=== PATIENT | female | born 2005 | race African-American/Black ===

== ENCOUNTER 2023-08-24 15:54 | Emergency (ER) | payer OTHER ==
[2023-08-24 16:06] VITALS: O2SAT 100
[2023-08-24 16:18] LABS: BASOPHILS % (AUTO) 0.5 %; EOSINOPHILS # (AUTO) 0.1 10^3/uL (0.0-0.7); EOSINOPHILS % (AUTO) 0.7 %; HCT - HEMATOCRIT 39.8 % (37.0-47.0); HGB - HEMOGLOBIN 12.7 g/dL (12.0-16.0); LYMPHOCYTES # (AUTO) 2.1 10^3/uL (1.5-3.5); MEAN CORPUSCULAR HGB CONC 31.9 g/dL (32.0-36.0); MEAN CORPUSCULAR VOLUME 87.7 fL (81.0-99.0); MEAN PLATELET VOLUME 10.7 fL (7.9-10.8); MONOCYTES # (AUTO) 0.8 10^3/uL (0.0-1.0); MONOCYTES % (AUTO) 9.3 %; NEUTROPHILS # (AUTO) 5.6 10^3/uL (1.5-6.6); NEUTROPHILS % (AUTO) 65.3 %; PLT - PLATELET COUNT 224 10^3/uL (130-450); RED BLOOD COUNT 4.54 10^6/uL (4.20-5.40); RED CELL DISTRIBUTION WIDTH 12.1 % (12.0-15.0); WHITE BLOOD COUNT 8.6 x10^3/uL (4.8-10.8)
[2023-08-24 16:47] LABS: ALBUMIN 4.4 g/dL (3.2-5.5); ALBUMIN/GLOBULIN RATIO 1.6 (1.0-2.2); ALKALINE PHOSPHATASE 49 IU/L (42-121); ALT ALANINE AMINOTRANSFERASE 19 IU/L (10-60); AST ASPARTATE AMINOTRANSFERASE 16 IU/L (10-42); BILIRUBIN,TOTAL 0.4 mg/dL (0.2-1.0); BUN - BLOOD UREA NITROGEN 8 mg/dL (6-20); CALCIUM 9.7 mg/dL (8.5-10.3); CARBON DIOXIDE - CO2 29 mmol/L (21-32); CHLORIDE 104 mmol/L (101-111); CREATININE 0.5 mg/dL (0.6-1.3); GFR - MDRD 191 (>89); GLUCOSE 77 mg/dL (74-104); POTASSIUM 3.7 mmol/L (3.5-4.5); SODIUM 139 mmol/L (135-145); TOTAL PROTEIN 7.1 g/dL (6.4-8.9)
[2023-08-24 16:48] LABS: LIPASE < 10 U/L (11-82)
[2023-08-24 16:49] LABS: BILIRUBIN,URINE NEGATIVE (NEGATIVE); GLUCOSE, URINE (UA) NEGATIVE (NEGATIVE); KETONES,URINE (UA) NEGATIVE (NEGATIVE); LEUKOCYTE ESTERASE, URINE NEGATIVE (NEGATIVE); NITRITE,URINE NEGATIVE (NEGATIVE); OCCULT BLOOD,URINE NEGATIVE (NEGATIVE); PROTEIN,URINE NEGATIVE (NEGATIVE); UROBILINOGEN,URINE 1 (NORMAL) E.U./dL (NORMAL)
[2023-08-24 16:51] LABS: CLARITY,URINE CLEAR (CLEAR); HCG UR QUAL NEGATIVE
--- NOTE | 2023-08-24 18:22 | ED Physician Documentation ---
History of Present Illness - Stated complaint Stated Complaint: PELVIC PX - Chief complaint Chief Complaint: Abd Pain - History obtained from History obtained from: Patient - History of Present Illness Timing: How many weeks ago (1) Pain level max: 5 Pain level now: 4 - Additonal information Additional information: Patient is a 18-year-old male who presents to the emergency department complaining of pelvic pain x 1 week. No vaginal bleeding, no vaginal discharge. LMP was 2 weeks ago. She has not been seen for this previously. She is taking ibuprofen to control the pain at home. She is not on any medications. Not on control. Does not believe she is . No changes in sexual partners. No abdominal pain, nausea, vomiting, diarrhea. No constipation. No fevers. No chills. No dysuria or urinary frequency. Review of Systems Constitutional: denies: Fever, Chills GI: denies: Vomiting, Diarrhea, Hematemesis, Bloody / black stool : denies: Dysuria, Frequency, Hesitancy Skin: denies: Rash Musculoskeletal: denies: Neck pain, Back pain Neurologic: denies: Headache PD PAST MEDICAL HISTORY - Past Medical History Past Medical History: No Cardiovascular: None Respiratory: None Neuro: None Endocrine/Autoimmune: None GI: None CLIENT SERVICES REPRESENTATIVE: None : None HEENT: None Psych: None Musculoskeletal: None Derm: None - Past Surgical History Past Surgical History: No - Allergies Allergies/Adverse Reactions: Allergies Allergy/AdvReac Type Severity Reaction Status Date / Time No Known Drug Allergies Allergy Verified 08/24/23 16:01 - Social History Does the pt smoke?: No Smoking Status: Never smoker Does the pt drink ETOH?: No Does the pt have substance abuse?: No - Immunizations Immunizations are current?: Yes PD ED PE NORMAL - Vitals Vital signs reviewed: Yes - General General: Alert and oriented X 3, No acute distress - HEENT HEENT: Moist mucous membranes - Neck Neck: Supple, no meningeal sign - Cardiac Cardiac: RRR, Strong equal pulses - Respiratory Respiratory: No respiratory distress, Clear bilaterally - Abdomen Abdomen: Soft, Non distended, Other (Tender to palpation suprapubic, low pelvic. No tenderness in the abdomen otherwise. No tenderness in the right lower or right upper quadrant.) - Female Female : Pt declined - Back Back: No CVA TTP, No spinal TTP - Derm Derm: Warm and dry - Extremities Extremities: No edema - Neuro Neuro: Alert and oriented X 3 - Psych Psych: Normal mood, Normal affect Results - Vitals Vitals: Vital Signs - 24 hr 08/24/23 08/24/23 16:01 18:04 Temperature 36.8 C Heart Rate 75 78 Respiratory 16 14 Rate Blood Pressure 123/61 122/78 O2 Saturation 100 100 Oxygen O2 Source Room air - Labs Labs: Laboratory Tests 08/24/23 08/24/23 08/24/23 16:05 16:10 16:10 WBC 8.6 RBC 4.54 Hgb 12.7 Hct 39.8 MCV 87.7 MCH 28.0 MCHC 31.9 L RDW 12.1 Plt Count 224 MPV 10.7 Neut # (Auto) 5.6 Lymph # (Auto) 2.1 [place] # (Auto) 0.8 Eos # (Auto) 0.1 Baso # (Auto) 0.0 Absolute Nucleated RBC 0.00 Nucleated RBC % 0.0 Sodium 139 Potassium 3.7 Chloride 104 Carbon Dioxide 29 Anion Gap 6.0 BUN 8 Creatinine 0.5 L Estimated GFR (MDRD) 191 Glucose 77 Calcium 9.7 Total Bilirubin 0.4 AST 16 ALT 19 Alkaline Phosphatase 49 Total Protein 7.1 Albumin 4.4 Globulin 2.7 Albumin/Globulin Ratio 1.6 Lipase < 10 L Urine Color YELLOW Urine Clarity CLEAR Urine pH 7.0 Ur Specific [place] 1.020 Urine Protein NEGATIVE Urine Glucose (UA) NEGATIVE Urine Ketones NEGATIVE Urine Occult Blood NEGATIVE Urine Nitrite NEGATIVE Urine Bilirubin NEGATIVE Urine Urobilinogen 1 (NORMAL) Ur Leukocyte Esterase NEGATIVE Ur Microscopic Review NOT INDICATED Urine Culture Comments NOT INDICATED Urine HCG, Qual NEGATIVE - Rads (name of study) Pelvic ultrasound Relevant Findings:: Final report received, See rad report PD Medical Decision Making - ED course Complexity details: reviewed results, re-evaluated patient, considered differential, d/w patient, d/w family ED course: Patient with pelvic pain x 1 week. Approximately 2 weeks status post LMP. Ultrasound consistent with right-sided ovarian cyst, hemorrhagic per anesthetic assistant. No significant lab abnormalities. Likely the cause of her pain. No evidence of torsion. Not tender near McBurney's point. No evidence of appendicitis. No evidence of bowel obstruction. Patient declines any pain medication here or for home. Will have her follow-up with her doctor for further care and repeat ultrasound in 6 to 12 weeks. Patient counseled regarding signs and symptoms for which I believe and urgent re-evaluation would be necessary. Patient with good understanding of and agreement to plan and is comfortable going home at this time This document was made in part using voice recognition software. While efforts are made to proofread this document, sound alike and grammatical errors may occur. Departure - Departure Disposition: 01 Home, Self Care Clinical Impression: Ovarian cyst Qualifiers: Laterality: right Qualified Code(s): N83.201 - Unspecified ovarian cyst, right side Condition: Good Instructions: ED Cyst Ovarian Follow-Up: your,doctor in 1 week [Other] Comments: You have a right-sided ovarian cyst that has a hemorrhagic component, this can cause pain in your pelvis. This should resolve on its own. I would use Motrin or Tylenol as needed for pain. You should have a repeat ultrasound in 6 to 12 weeks. This can be ordered by your doctor. Please return if you worsen. PROCEDURE: Pelvic w/Transvag+Doppler Comp INDICATIONS: pelvic pain x 1 week TECHNIQUE: Real-time scanning was performed of the pelvic organs, with image documentation. Additional endovaginal scanning was necessary due to incomplete visualization of the adnexal and endometrial st ructures by transabdominal scanning. Doppler interrogation was performed of the ovaries bilaterally. COMPARISON: None. FINDINGS: Uterus: Uterus is anteverted and normal in size at 7.9 x 4.2 x 4.9 cm. The myometrium is heterogeneous. The endometrium measures 9.3 mm in combined thickness. Ovaries: The right ovary measures 3.7 x 2.5 x 3.7 cm, with a calculated ovarian volume of 10.0 cc. The left ovary measures 3.4 x 1.6 x 2.5 cm, with a calculated ovarian volume of 7.2 cc. Appr opriate blood flow to the ovaries with Doppler interrogation. There is a thick- walled complex cyst measuring 2.0 x 1.3 x 3.1 cm in the right ovary. Less than 12 follicles can be seen in each ovary. No adnexal masses are seen. No cystic lesions measuring greater than 3 cm. On Doppler ultrasound, there is normal vascularity in both ovaries. Other: No pathologic free abdominal or pelvic fluid. IMPRESSION: 1. A 2.0 x 1.3 x 3.0 cm complex cyst in right ovary. Recommend a short-term follow-up ultrasound in 6-12 weeks. 2. No ultrasound findings to suggest ovarian torsion. 3. Mildly heterogeneous myometrium. Uterus is otherwise normal. Forms: PCP List Discharge Date/Time: 08/24/23 19:53
[2023-08-24 18:40] VITALS: BP 122/78
--- NOTE | 2023-08-24 19:28 | Ultrasound Report ---
PROCEDURE: Pelvic w/Transvag+Doppler Comp INDICATIONS: pelvic pain x 1 week TECHNIQUE: Real-time scanning was performed of the pelvic organs, with image documentation. Additional endovagi nal scanning was necessary due to incomplete visualization of the adnexal and endometrial structures by transabdominal scanning. Doppler interrogation was performed of the ovaries bilaterally. COMPARISON: None. FINDINGS: Uterus: Uterus is anteverted and normal in size at 7.9 x 4.2 x 4.9 cm. The myometrium is heterogene ous. The endometrium measures 9.3 mm in combined thickness. Ovaries: The right ovary measures 3.7 x 2.5 x 3.7 cm, with a calculated ovarian volume of 10.0 cc. The left ovary measures 3.4 x 1.6 x 2.5 cm, with a calculated ovarian volume of 7.2 cc. Appropriate blood flow to the ovaries with Doppler interrogation. There is a thick-walled complex cyst measuri ng 2.0 x 1.3 x 3.1 cm in the right ovary. Less than 12 follicles can be seen in each ovary. No adnex al masses are seen. No cystic lesions measuring greater than 3 cm. On Doppler ultrasound, there is no rmal vascularity in both ovaries. Other: No pathologic free abdominal or pelvic fluid. IMPRESSION: 1. A 2.0 x 1.3 x 3.0 cm complex cyst in right ovary. Recommend a short-term follow-up ultrasound in 6 -12 weeks. 2. No ultrasound findings to suggest ovarian torsion. 3. Mildly heterogeneous myometrium. Uterus is otherwise normal. Reviewed by: Jj Chacon MD on 08/24/2023 7:27 PM PST Approved by: Jj Chacon MD on 08/24/2023 7:27 PM PST Station ID: [id number]
== END 2023-08-24 19:53 | disposition home or self-care (01) ==
LOC: ED 15:54
DX: N83.201 Unspecified ovarian cyst, right side (principal)
CPT/HCPCS: 36415; 80053; 81001; 81003; 81025; 83690; 85025; 87086; 93975; 99283; 99284